=== PATIENT | male | born 1975 | race Caucasian/White ===

== ENCOUNTER 2019-12-14 16:54 | Inpatient (IN) | payer OTHER ==
[~2019-12-14] VITALS: Ht 182.9 cm; Wt 117.5 kg
--- NOTE | 2019-12-14 17:07 | NUR ---
MATT GLEZ FROM [facility] AFTER PT HAD WITNESSED SEIZURE. PT CARDIOPULMONARY PHYSICAL THERAPIST AND STOPPED TO HARDING. PT FELT GOOD ALL DAY. 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 PT CONNECTED TO MONITORING. SEIZURE PRECAUTIONS IN PLACE. CALL LIGHT IN REACH.
[2019-12-14 17:22] LABS: BASOPHILS # (AUTO) 0.06 x10^3/uL (0-0.1); BASOPHILS % (AUTO) 0 % (0-1); EOSINOPHILS # (AUTO) 0.19 x10^3/uL (0-0.4); EOSINOPHILS % (AUTO) 1 % (1-7); LYMPHOCYTES % (AUTO) 29 % (22-44); MD NO; MEAN CORPUSCULAR HEMOGLOBIN 32.7 pg (27.5-34.5); MEAN CORPUSCULAR HGB CONC 33.6 g/dL (33.2-36.2); MEAN CORPUSCULAR VOLUME 97.4 fL (81-97); MEAN PLATELET VOLUME 7.7 fL (7.4-10.4); MONOCYTES # (AUTO) 0.83 x10^3/uL (0.2-0.8); MONOCYTES % (AUTO) 6 % (2-9); NEUTROPHILS # (AUTO) 8.59 x10^3/uL (1.8-6.8); NEUTROPHILS % (AUTO) 63 % (42-75); PLATELET COUNT 226 x10^3/uL (130-400); RED BLOOD COUNT 4.74 x10^6/uL (4.38-5.82); RED CELL DISTRIBUTION WIDTH 13.9 % (9.4-14.8)
--- NOTE | 2019-12-14 17:23 | NUR ---
PT TAKEN TO CT
[2019-12-14 17:35] LABS: ALANINE AMINOTRANSFERASE 95 U/L (12-78); ALBUMIN 4.1 g/dL (3.4-5.0); ANION GAP 9 mmol/L (5-15); CHLORIDE 106 mmol/L (98-107); CREATININE 1.27 mg/dL (0.7-1.3)
[2019-12-14 17:37] LABS: ALKALINE PHOSPHATASE 72 U/L (45-117); BILIRUBIN,TOTAL 0.3 mg/dL (0.2-1.0); TOTAL PROTEIN 7.5 g/dL (6.4-8.2)
--- NOTE | 2019-12-14 17:37 | NUR ---
PT BACK FROM CT. PT GIVEN WATER, OK PER .
--- NOTE | 2019-12-14 17:42 | NUR ---
PT AWARE NEED FOR URINE SAMPLE. PT DRINKING WATER TO FACILITATE URINE.
[2019-12-14] MEDS ORDERED: DEXAMETHASONE 4 MG/ML, 1ML ONE (17:50)
--- NOTE | 2019-12-14 17:56 | NUR ---
[facility] ADMIN PER JAN. PT RESTING ON [facility] TALKING ON PHONE.
[2019-12-14] MEDS ORDERED: PLEASE ENTER ALLERGIES MC SCH (18:00)
[2019-12-14] MEDS ORDERED: DEXAMETHASONE 4 MG/ML, 1ML IVPush ONE (18:00)
[2019-12-14] MEDS ORDERED: SODIUM CHLORIDE FLUSH 10ML SYR IVF ONE (18:30)
[2019-12-14] MEDS ORDERED: SODIUM CHLORIDE 0.9% 1,000ML IVBOLUS ONE (18:30)
--- NOTE | 2019-12-14 19:07 | NUR ---
PT PROVIDED URINE SAMPLE. UA COLLECTED AND TAKEN TO LAB. PT TAKEN TO MRI.
[2019-12-14] MEDS ORDERED: GADOTERATE 10 MMOL/20 ML SYR ONE (19:19)
[2019-12-14 19:26] LABS: AMPHETAMINE SCREEN, URINE Negative (Negative); BARBITURATE SCREEN, URINE Negative (Negative); BENZODIAZEPINE SCREEN, URINE Negative (Negative); CANNABINOID SCREEN, URINE Negative (Negative); COCAINE SCREEN, URINE Negative (Negative); METHADONE SCREEN, URINE Negative (Negative); OPIATE SCREEN, URINE Negative (Negative)
[2019-12-14] MEDS ORDERED: PHENYTOIN SODIUM 1,000 MG in SODIUM CHLORIDE 0.9% 100 ML IV ONE (20:00)
[2019-12-14] MEDS ORDERED: LEVETIRACETAM 1,000 MG in SODIUM CHLORIDE 0.9% 100 ML IV ONE (20:30)
[2019-12-14] MEDS ORDERED: FILTER 0.22 MICRON IV ONE (20:30)
--- NOTE | 2019-12-14 20:30 | NUR ---
MEDS ADMIN PER JAN. PT RESTING COMFORTABLY ON GURNEY. JERZY. HOSPITALIST AT BEDSIDE.
--- NOTE | 2019-12-14 20:47 | NUR ---
PT TAKEN TO CT
--- NOTE | 2019-12-14 20:59 | NUR ---
REPORT GIVEN TO AMBIKA AVERY.
[2019-12-14 21:00] VITALS: BP 130/73
[2019-12-14] MEDS ORDERED: BISACODYL 10 MG SUPP PR PRN (21:00)
[2019-12-14] MEDS ORDERED: ACETAMINOPHEN 325 MG TABLET PO PRN (21:00)
[2019-12-14] MEDS ORDERED: ONDANSETRON ODT 4 MG PO PRN (21:00)
[2019-12-14] MEDS ORDERED: POLYETHYLENE GLYCOL 17 GM PACKET PO PRN (21:00)
[2019-12-14] MEDS: SODIUM CHLORIDE FLUSH 10ML SYR IVF SCH (21:00)
[2019-12-14] MEDS ORDERED: NICOTINE 14MG/24 HR PATCH.TD24 TD SCH (21:00)
[2019-12-14 21:25] VITALS: BP 130/73
[2019-12-14] MEDS ORDERED: ZOLPIDEM 5MG TABLET PO PRN (23:00)
[2019-12-15] MEDS: DEXAMETHASONE 4 MG/ML, 1ML IVPush SCH ×2 (00:06→04:26)
[2019-12-15 02:00] VITALS: BP 138/71
[2019-12-15 05:14] LABS: BASOPHILS # (AUTO) 0.01 x10^3/uL (0-0.1); BASOPHILS % (AUTO) 0 % (0-1); EOSINOPHILS % (AUTO) 0 % (1-7); LYMPHOCYTES # (AUTO) 1.43 x10^3/uL (1-3.4); LYMPHOCYTES % (AUTO) 10 % (22-44); MD NO; MEAN CORPUSCULAR HEMOGLOBIN 33.2 pg (27.5-34.5); MEAN CORPUSCULAR HGB CONC 34.1 g/dL (33.2-36.2); MEAN CORPUSCULAR VOLUME 97.4 fL (81-97); MEAN PLATELET VOLUME 8.1 fL (7.4-10.4); MONOCYTES # (AUTO) 0.15 x10^3/uL (0.2-0.8); MONOCYTES % (AUTO) 1 % (2-9); NEUTROPHILS # (AUTO) 12.37 x10^3/uL (1.8-6.8); NEUTROPHILS % (AUTO) 89 % (42-75); PLATELET COUNT 200 x10^3/uL (130-400); RED BLOOD COUNT 4.55 x10^6/uL (4.38-5.82)
[2019-12-15 05:17] LABS: ALANINE AMINOTRANSFERASE 88 U/L (12-78); ALBUMIN 3.8 g/dL (3.4-5.0); ANION GAP 3 mmol/L (5-15); CALCIUM 8.9 mg/dL (8.5-10.1); CHLORIDE 109 mmol/L (98-107); CHOLESTEROL, TOTAL 200 mg/dL (140-239); CREATININE 0.97 mg/dL (0.7-1.3)
[2019-12-15 05:19] LABS: ALKALINE PHOSPHATASE 66 U/L (45-117); BILIRUBIN,TOTAL 0.3 mg/dL (0.2-1.0); CHOL/HDL RATIO 4.1; HDL CHOL % 25 % (26-37); HDL CHOLESTEROL (DIRECT) 49 mg/dL (40-60); LDL CHOLESTEROL,CALCULATED 113 mg/dL (54-169); LDL/HDL RATIO 2.3 (0.5-3.0); TOTAL PROTEIN 7.2 g/dL (6.4-8.2); TRIGLYCERIDES 188 mg/dL (50-200); VLDL CHOLESTEROL 38 mg/dL (0-25)
[2019-12-15] MEDS: SODIUM CHLORIDE FLUSH 10ML SYR IVF SCH (08:11)
[2019-12-15 08:53] VITALS: BP 152/83
[2019-12-15] MEDS ORDERED: LEVETIRACETAM 500 MG TABLET PO SCH (09:00)
[2019-12-15] MEDS ORDERED: SENNA/DOCUSATE TABLET PO SCH (09:00)
== END 2019-12-15 09:45 | disposition left against medical advice (07) | DRG 100 ==
LOC: ED 20:27 → EDIP 20:50 → 4WST 21:17
PROVIDERS: ADMIT Internal Medicine; ATTEND Internal Medicine
DX: G40.409 Other generalized epilepsy and epileptic syndromes, not intractable, without status epilepticus (principal); G93.6 Cerebral edema; E87.2 Acidosis; D75.89 Other specified diseases of blood and blood-forming organs; G93.9 Disorder of brain, unspecified; Z53.29 Procedure and treatment not carried out because of patient's decision for other reasons; W07.XXXA Fall from chair, initial encounter; Z85.820 Personal history of malignant melanoma of skin; Z87.891 Personal history of nicotine dependence; Y93.89 Activity, other specified; Y92.89 Other specified places as the place of occurrence of the external cause; Y99.8 Other external cause status; Z79.899 Other long term (current) drug therapy
CPT/HCPCS: 36415; 70450; 70553; 71045; 71250; 74176; 80053; 80061; 80074; 80307; 82607; 83605; 85025; 93005; 96361; 96374; G0378; J1100; J1953; A9575; J7030